=== PATIENT | female | born 1990 | race Hispanic/Latino ===

== ENCOUNTER 2020-10-11 13:00 | Emergency (ER) | payer SELFPAY ==
[~2020-10-11] VITALS: Ht 165.1 cm; Wt 54.5 kg
[2020-10-11 14:27] VITALS: BP 104/70
== END 2020-10-11 14:31 | disposition home or self-care (01) | DRG 556 ==
LOC: ED 13:00
DX: M79.642 Pain in left hand (principal); W22.09XA Striking against other stationary object, initial encounter; Y93.89 Activity, other specified; Y92.009 Unspecified place in unspecified non-institutional (private) residence as the place of occurrence of the external cause